=== PATIENT | male | born 1975 | race Caucasian/White ===

== ENCOUNTER 2025-09-06 17:59 | Emergency (ER) | payer MEDICAID, SELFPAY ==
[2025-09-06] VITALS (10 sets, daily range): BP systolic 208–260; BP diastolic 98–147; PULSE 69–94; RESP 9–20; TEMP 36.6–36.8; O2SAT 97–100; BMI 29.0
--- NOTE | 2025-09-06 18:19 | ED_ITS ---
<Statement entered by Moustapha Ward MD - 09/06/25 22:37> I was consulted by the ROZ, and we discussed the complexity of the problems being addressed. I approved the treatment and management plan for this patient's care in the emergency department, thus performing a substantive portion of the medical decision making. Moustapha Ward MD, AMBIKA, FACEP Discharge Plan Disposition Patient Disposition: Home, Self-Care Condition: Good Prescriptions Prescriptions: New lisinopril 10 mg tablet 10 mg PO DAILY Qty: 14 0RF Referrals Follow up/Referrals: Provider,Tate, [Primary Care Provider, Medical] - See instructions Hilton Jung DO [Staff Physician, Family Practice] - See instructions Clinical Impressions Clinical Impression: Hypertension Instructions Patient Instructions: DI for High Blood Pressure Print Language Print Language: Vietnamese Discharge ED Provider: Moustapha Ward General Adult HPI General Chief complaint: PAIN Stated complaint: coughing up blood Time Seen by Provider: 09/06/25 18:19 Mode of Arrival: Ambulatory Source of Information: Patient and Spouse Description of Symptoms (Recalled from ER Triage Doc. by RN): Pt stated he woke up @0300 this morning with a nosebleed that felt like it was going down his throat. Pt states he cannot tell if the bleed is in his throat or the back of his nose because he feels like hes coughing up blood. He stated he just spit up blood again before he came to the ER History of Present Illness HPI narrative: 50-year-old male presents emergency department with concerns for nosebleeds. He states that he woke up this morning with a nosebleed. He states the bleeding resolved spontaneously. He reports he got home this afternoon and took a nap and woke up again with a nosebleed. Upon arrival to the emergency department his bleeding has again stopped. Patient was found to be very hypertensive during triage but states he has not been to the doctor for 10+ years. Related Data Previous Rx's ?Medication ?Instructions ?Recorded lisinopril 10 mg tablet 10 mg PO DAILY #14 tabs 08/12 06/04 Allergies Allergy/AdvReac Type Severity Reaction Status Date / Time bee venom protein (honey bee) Allergy Swelling Verified 09/06/25 18:09 of Lip/Tongue/Throat PFSH [facility] Disclaimer: The information contained in this section may have been updated after the patient was seen, as this information can be updated by other users. Social History Smoking Status: Former smoker alcohol intake: never current occupational status: employed Travel in the last 8 weeks?: None ROS Obtained: Yes other Eyes Eyes: Reports other (Nosebleed) Physical Exam Narrative Physical exam: General: Awake, aware, in no acute distress HEENT: Normocephalic, no evidence of trauma CV: RRR, no murmurs, rubs, or gallops Pulm: CTA bilaterally with no rhonchi, rales, wheezes ABD: Nontender, no swelling, guarding, or rebound tenderness Psych, appropriate mood and affect General General appearance: alert Respiratory Respiratory exam: Present normal lung sounds bilaterally Cardiovascular Cardiovascular exam: Present regular rate Neurological Exam Neurological exam: Present alert Medical Decision Making Medical Records Screening: Per USPSTF and CDC recommendations, given the prevalence of disease in our region, it is our hospital?s policy to screen for HIV and viral Hepatitis for all patients aged 18 and over and those with ongoing risk factors. Venkat Inquiry Pt receiving controlled substance: No Vital Signs: 09/06/25 18:02 09/06/25 19:00 09/06/25 19:00 Temperature 98.2 F Temperature Source Temporal Artery Scan Pulse Rate 78 Pulse Rate [Right] 94 H Respiratory Rate 20 16 Blood Pressure 224/121 H Blood Pressure [Right Arm] 260/147 H Blood Pressure Mean 155 Blood Pressure Mean [Right Arm] 184 Blood Pressure Source Blood Pressure Source [Right Arm] Automatic Cuff Blood Pressure Position Blood Pressure Position [Right Arm] Sitting 02 Sat by Pulse Oximetry 97 97 Oxygen Delivery Method Room Air 09/06/25 19:14 09/06/25 19:14 09/06/25 19:15 Temperature 97.8 F Temperature Source Oral Pulse Rate 85 82 Pulse Rate [Right] Respiratory Rate 14 15 Blood Pressure 243/130 H 243/130 H Blood Pressure [Right Arm] Blood Pressure Mean 167 Blood Pressure Mean [Right Arm] Blood Pressure Source Automatic Cuff Blood Pressure Source [Right Arm] Blood Pressure Position Sitting Blood Pressure Position [Right Arm] 02 Sat by Pulse Oximetry 98 100 Oxygen Delivery Method Room Air 09/06/25 19:15 09/06/25 19:30 09/06/25 19:30 Temperature Temperature Source Pulse Rate 83 77 Pulse Rate [Right] Respiratory Rate 17 11 L Blood Pressure 239/133 H Blood Pressure [Right Arm] Blood Pressure Mean 168 Blood Pressure Mean [Right Arm] Blood Pressure Source Blood Pressure Source [Right Arm] Blood Pressure Position Blood Pressure Position [Right Arm] 02 Sat by Pulse Oximetry 98 98 Oxygen Delivery Method 09/06/25 19:45 09/06/25 20:00 09/06/25 20:00 Temperature Temperature Source Pulse Rate 83 77 Pulse Rate [Right] Respiratory Rate 10 L 13 Blood Pressure 227/128 H Blood Pressure [Right Arm] Blood Pressure Mean 161 Blood Pressure Mean [Right Arm] Blood Pressure Source Blood Pressure Source [Right Arm] Blood Pressure Position Blood Pressure Position [Right Arm] 02 Sat by Pulse Oximetry 98 97 Oxygen Delivery Method 09/06/25 20:15 09/06/25 20:30 09/06/25 20:30 Temperature Temperature Source Pulse Rate 82 70 Pulse Rate [Right] Respiratory Rate 17 9 L Blood Pressure 208/98 H Blood Pressure [Right Arm] Blood Pressure Mean 143 Blood Pressure Mean [Right Arm] Blood Pressure Source Blood Pressure Source [Right Arm] Blood Pressure Position Blood Pressure Position [Right Arm] 02 Sat by Pulse Oximetry 97 98 Oxygen Delivery Method Lab Data Lab Results 09/06/25 18:31: WBC 9.2, RBC 5.25, Hgb 16.6, Hct 47.5, MCV 90.5, MCH 31.6 H, MCHC 34.9, RDW 11.9, Plt Count 284, MPV 9.7, Neut % (Auto) 70.6, Lymph % (Auto) 22.0, [place] % (Auto) 5.4, Eos % (Auto) 0.8, Baso % (Auto) 0.4, Neut # (Auto) 6.5, Lymph # (Auto) 2.0, [place] # (Auto) 0.5, Eos # (Auto) 0.1, Baso # (Auto) 0.0, Sodium 138, Potassium 3.8, Chloride 103, Carbon Dioxide 26, Anion Gap 12.8, BUN 18, Creatinine 1.30 H, Estimated Creat Clear 96, Estimated GFR 58 L, Est GFR ( Amer) 71, Glucose 154 H, Calcium 8.9, Magnesium 2.1, Total Bilirubin 1.1, AST 33, ALT 22, Alkaline Phosphatase 140 H, NT-Pro-B Natriuret Pep 97.4, Total Protein 7.9, Albumin 4.0, Globulin 3.9 H, Albumin/Globulin Ratio 1.0 L 10/27/25 19:10: Urine Color Yellow, Urine Appearance Clear, Urine pH 6.5, Ur Specific Eure 1.015, Urine Protein 1+ A, Urine Glucose (UA) Negative, Urine Ketones Negative, Urine Blood Negative, Urine Nitrate Negative, Urine Bilirubin Negative, Urine Urobilinogen 0.2, Ur Leukocyte Esterase Negative, Urine RBC None, Urine WBC Occasional, Ur Squamous Epith Cells None, Urine Bacteria None 09/06/25 18:31 09/06/25 18:31 Orders (Tests/Meds): ORDERS Category Date Time Status XR chest portable Stat Exams 09/06/25 18:35 Completed BNP [NT Pro Brain Natriuretic Pep.] Stat Lab 09/06/25 18: Completed CBC w/Auto Diff [Complete Blood Count Auto Diff] Stat Lab 09/06/25 18:31 Completed CMP [Comprehensive Metabolic Panel] Stat Lab 09/06/25 18:31 Completed Hemoglobin A1C Stat Lab 09/06/25 18: Received Magnesium Stat Lab 09/06/25 18:31 Completed Urinalysis and Microscopic Stat Lab 09/06/25 19:10 Completed Medical Decision Narrative: Initial impression of presenting illness: 50-year-old male presents emergency department concern for nosebleeds. He states he woke up this morning with a nosebleed however it was spontaneously resolved he states that he was fine all day until he laid down for a nap this afternoon and woke up again with a nosebleed. Upon arrival to the emergency department bleeding has again resolved. Patient arrives very hypertensive with a systolic in the 260s. He denies chest pain or shortness of breath. He states he has not been to the doctor in over 10 years. He does not take any daily medications and does not know if he has a diagnosis of hypertension. Differential diagnosis includes but is not limited to: Nasal polyp, nasal trauma, malignancy, uncontrolled hypertension, hypertensive emergency, organ damage related to uncontrolled hypertension Patient arrives hemodynamically stable, afebrile, without respiratory distress with vital signs interpreted by myself. Initial physical exam unremarkable. No evidence of nasal bleeding or trauma at this time. Initial diagnostic plan: Laboratory studies including EKG and chest x-ray Results from initial plan were reviewed and interpreted by myself, pertinent positives include: Laboratory studies were nonactionable. Hemoglobin A1c is pending at this time due to technical issues with the lab. Chest x-ray was also unremarkable for acute findings. Patient was made aware of the results and the findings, upon reevaluation patient has remained stable throughout stay, symptoms have improved. Patient's blood pressure has decreased without intervention. He currently has a systolic of 208. Patient continues to deny chest pain or shortness of breath. Disposition: Reviewed finding today's workup with patient informed no acute abnormalities were noted. Advised him that we will treat with lisinopril for his hypertension. Just the importance of patient following up with his primary care provider for further evaluation and management of his hypertension. Instructed him to return to the emergency department any new or worsening symptoms including chest pain, shortness of breath, decreased urine output, leg swelling, neurological symptoms. Also encourage patient to consume a low-salt diet to help his pressure as well. Patient was agreeable to plan of care. Patient made aware of findings and had a detailed discussion with symptomatic care and return precautions, patient voiced understanding. Critical Care Critical Care Time Critical Care Time: No
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
[2025-09-06 18:41] LABS: Hematocrit 47.5 % (42.0-52.0); Hemoglobin 16.6 g/dL (14.1-18.0); Immature Granulocytes % 0.8 %; Mean Corpuscular HGB Conc 34.9 g/dL (31.8-35.4); Mean Corpuscular Hemoglobin 31.6 pg (27.0-31.2); Mean Corpuscular Volume 90.5 fl (80-94); Nucleated Red Blood Cells % 0 %; Platelet Count 284 K/mm3 (142-424); Red Blood Count 5.25 M/mm3 (4.60-6.20); Red Cell Distribution Width-SD 39.3 fL; White Blood Count 9.2 K/mm3 (4.8-10.8)
--- NOTE | 2025-09-06 18:47 | ECG_ITS ---
APPROVED REPORT Exam: Resting ECG HR:80 bpm ECG Measurements Heart Rate 80 AXES ME 130 P 37 QRSd 89 QRS 60 QT 379 T 9 QTc 415 Conclusion SINUS RHYTHM NONSPECIFIC T-WAVE ABNORMALITY BORDERLINE ECG UNCONFIRMED REPORT Electronically signed by : BRENDAN PERRIN, 09/07/2025 06:26:39
[2025-09-06 18:51] LABS: Alanine Aminotransferase 22 U/L (12-78); Albumin Level 4.0 g/dl (3.5-5.0); Albumin/Globulin Ratio 1.0 (1.1-1.8); Alkaline Phosphatase 140 U/L (38-126); Anion Gap 12.8 mEq/L (5-15); Aspartate Amino Transferase 33 U/L (17-59); Bilirubin,Total 1.1 mg/dl (0.2-1.3); Blood Urea Nitrogen 18 mg/dl (9-20); Calcium 8.9 mg/dl (8.4-10.2); Carbon Dioxide 26 mmol/L (22.0-30.0); Chloride 103 mmol/L (98-107); Creatinine Clearance Estimated 96 mL/min (50-200); Creatinine,Serum 1.30 mg/dl (0.66-1.25); Estimated Glomerular Filt Rate 58 ml/min (>60); GFR (African American) 71 ML/MIN (>60); Globulin 3.9 g/dL (1.3-3.2); Glucose 154 mg/dl (74-100); Magnesium 2.1 mg/dl (1.6-2.3); Potassium 3.8 mmoL/L (3.5-5.1); Sodium 138 mmol/L (136-145); Total Protein,Serum 7.9 g/dl (6.3-8.2)
[2025-09-06 19:00] LABS: NT Pro Brain Natriuretic Pep. 97.4 pg/mL (0-125)
[2025-09-06 19:19] LABS: Microscopic, Urine URINE MICROSCOPIC (MICROSCOPIC)
[2025-09-06 19:37] LABS: Bilirubin,Urine Negative (Negative); Color,Urine YELLOW (Yellow); Glucose,Urine (UA) Negative (Negative); Ketones,Urine Negative (Negative); Leukocyte Esterase,Urine Negative (Negative); PH,Urine 6.5 (5.0-8.5); Protein,Urine 1+ (Negative); Specific Gravity, Urine 1.015 (1.005-1.030); Urobilinogen,Urine 0.2 EU/dl (0.2)
[2025-09-06 20:07] LABS: WBC,Urine Occasional #/hpf (0-3)
[2025-09-07 04:14] LABS: Hemoglobin A1C 4.9 % (4.0-6.0)
== END 2025-09-06 21:28 | disposition home or self-care (01) ==
PROVIDERS: Nurse Practitioner Family; Emergency Provider Student in an Organized Health Care Education/Training Program
DX: R04.0 Epistaxis (principal); I10 Essential (primary) hypertension
CPT/HCPCS: 71045; 80053; 81001; 83036; 83735; 83880; 85025; 93005; 99284; 99285

== ENCOUNTER 2025-10-14 13:28 | Outpatient (CLI) | payer MEDICAID, SELFPAY ==
[2025-10-14 14:20] LABS: Cholesterol 230 mg/dl (140-200); HDL Cholesterol 70 mg/dl (40-60); Triglycerides 102 mg/dl (30-150)
--- OUTSIDE RECORDS SUMMARY | 2025-10-17 13:30 | XMS_ITS | Clinical Summary ---
Author Organization Healthcare Address [address] [place] [address] Care Team Providers Care Tank Setter Name Role Phone Royer Mann MD Primary Care Provider [phone] Immunizations Immunization Administration Dates Next Due Influenza, injectable, quadrivalent, preservativ e free 09/04/2017 Social History Tobacco Use Types Packs/Day Years Used Date Smoking Tobacco: Never Sex and Gender Information Value Date Recorded Sex Assigned at Not on file Legal Sex Male 8:02 PM EDT Gender Identity Not on file Sexual Orientation Not on file Last Filed Vital Signs Vital Sign Reading Time Taken Comments Blood Pressure 162/93 11/12/2017 10:29 AM EST Pulse 78 11/12/2017 10:29 AM EST Temperature 37.1 C (98.7 F) 11/12/2017 10:29 AM EST Respiratory Rate - - Oxygen Saturation - - Inhaled Oxygen Concentration - - Weight 102 kg (225 lb) 09/02/2017 12:54 PM EDT Height 185.4 cm (6' 1 ) 09/02/2017 12:54 PM EDT Body Mass Index 29.69 09/02/2017 12:54 PM EDT Plan of Treatment Not on file Care Teams Tank Setter Relationship Specialty Start Date End Date Royer Mann MD [address] [place] [id number] PCP - General 03/24/21
== END 2025-10-14 23:59 | disposition home or self-care (01) ==
LOC: LAB.DROPOF 10-17 13:29
PROVIDERS: PCP Internal Medicine; Visit Provider Internal Medicine
DX: I10 Essential (primary) hypertension (principal)
CPT/HCPCS: 80061